=== PATIENT | male | born 1975 | race Caucasian/White ===

== ENCOUNTER 2017-11-12 07:55 | Emergency (ER) | payer BC ==
[2017-11-12] MEDS ORDERED: Loperamide 2 MG Cap PO STA (08:28)
--- NOTE | 2017-11-12 08:34 | EDM.PDOC ---
ED HPI GENERAL MEDICAL PROBLEM - General Chief Complaint: Gastrointestinal Problem Stated Complaint: DIARRHEA Time Seen by Provider: 11/12/17 08:13 Source of Information: Reports: Patient, RN Notes Reviewed History Limitations: Reports: No Limitations - History of Present Illness INITIAL COMMENTS - FREE TEXT/NARRATIVE: The patient states that he occasionally has some loose bowel movements ever since he underwent a cholecystectomy in 2004, but he does not have a history of recurrent diarrhea. He took one tablet of Imodium yesterday morning before he went hunting with his daughter, just to be safe. He states that he was then at the [employer] [place] festival yesterday, and 8 the same food as everyone else. He developed generalized abdominal cramps and loose bowel movements, although not watery diarrhea last night, then nausea with dry heaves this morning. No recent fever. None of his close contacts are similarly ill. No recent antibiotics. No recent travel. No spoiled or malodorous food over the past few days. No prior similar symptoms. The patient states that he took a second Imodium around 18:00 last night, then a third around 00:30 this morning. The patient does not have a PCP. - Related Data Allergies Allergy/AdvReac Type Severity Reaction Status Date / Time No Known Allergies Allergy Verified 11/12/17 08:11 Home Meds: Home Meds Ondansetron [Zofran ODT] 1 tab PO Q8H PRN #10 tab.dis 11/12/17 [Rx] Testosterone Cypionate [Depo-Testosterone] 0.75 ml IM ASDIRECTED 11/12/17 [ History] Past Medical History Endocrine/Metabolic History: Reports: Obesity/BMI 30+, Other (See Below) (Low testosterone) Other Endocrine/Metabolic History: low testosterone - Past Surgical History GI Surgical History: Reports: Cholecystectomy (2004) Musculoskeletal Surgical History: Reports: Arthroscopic Knee (right) Social & Family History - Tobacco Use Smoking Status *Q: Former Smoker Years of Tobacco use: 23 Packs/Tins Daily: 0.8 Month/Year Tobacco Last Used: Quit 2012 - Caffeine Use Caffeine Use: Reports: Coffee - Alcohol Use Alcohol Use History: Yes Date/Time of Last Drink Comment: Quit Mar 2017 b/c has a drinking problem - Recreational Drug Use Recreational Drug Use: No - Living Situation & Occupation Living situation: Reports: , with Spouse, with Family (2 kids) Occupation: Disabled (due to knee) ED ROS GENERAL - Review of Systems Review Of Systems: ROS reveals no pertinent complaints other than HPI. ED EXAM, GI/ABD - Physical Exam Exam: See Below Exam Limited By: No Limitations General Appearance: Alert, WD/WN, No Apparent Distress Eyes: Bilateral: Normal Appearance, EOMI Ears: Normal External Exam, Hearing Grossly Normal Nose: Normal Inspection, No Blood Throat/Mouth: Normal Inspection, Normal Lips, Normal Voice, No Airway Compromise Head: Atraumatic, Normocephalic Neck: Normal Inspection, Full Range of Motion Respiratory/Chest: No Respiratory Distress, Lungs Clear, Normal Breath Sounds, No Accessory Muscle Use Cardiovascular: Normal Peripheral Pulses, Regular Rate, Rhythm, No Edema, No Gallop, No JVD, No Murmur, No Rub GI/Abdominal Exam: Normal Bowel Sounds, Soft, Non-Tender, No Organomegaly, No Distention, No Abnormal Bruit, No Mass, Other (Obese) (Male) Exam: Deferred Rectal (Males) Exam: Deferred Back Exam: Normal Inspection, Full Range of Motion. No: CVA Tenderness (L), CVA Tenderness (R) Extremities: Normal Inspection, Normal Range of Motion, No Pedal Edema, Normal Capillary Refill Neurological: Alert, Oriented, Normal Cognition, No Motor/Sensory Deficits Psychiatric: Normal Affect Skin Exam: Warm, Dry, Intact, Normal Color, No Rash Course - Vital Signs Last Recorded V/S: Last Vital Signs Temp 36.6 C 11/12/17 08:05 Pulse 67 11/12/17 08:05 Resp 16 11/12/17 08:05 BP 153/93 H 11/12/17 08:05 Pulse Ox 99 11/12/17 08:05 Orthostatic Blood Pressure [ 145/95 Standing] Orthostatic Blood Pressure [ 141/83 Supine] - Orders/Labs/Meds Orders: Active Orders 24 hr Category Date Time Status Orthostatic Vital Signs [RC] STAT Care 11/12/17 08:26 Active CULTURE STOOL + SHIGATOX [RM] Stat Lab 11/12/17 08:38 Received NOROVIRUS, RT-PCR Stat Lab 11/12/17 08:38 Received Ondansetron [Zofran ODT] Med 11/12/17 09:37 Once 4 mg PO ONETIME ONE Medication Orders Ondansetron HCl (Zofran Odt) 4 mg PO ONETIME ONE Stop: 11/12/17 09:38 Labs: Laboratory Tests 11/12/17 11/12/17 Range/Units 08:40 08:40 WBC 10.53 H (4.23-9.07) K/mm3 RBC 6.21 H (4.63-6.08) M/mm3 Hgb 18.3 H (13.7-17.5) gm/L Hct 53.8 H (40.1-51.0) % MCV 86.6 (79.0-92.2) fl MCH 29.5 (25.7-32.2) pg MCHC 34.0 (32.2-35.5) g/dl RDW Std Deviation 44.0 H (35.1-43.9) fL Plt Count 262 (163-337) K/mm3 MPV 10.0 (9.4-12.3) fl Neutrophils % (Manual) 67 H (40-60) % Band Neutrophils % 0 (0-10) % Lymphocytes % (Manual) 26 (20-40) % Atypical Lymphs % 0 % Monocytes % (Manual) 7 (2-10) % Eosinophils % (Manual) 0 L (0.8-7.0) % Basophils % (Manual) 0 L (0.2-1.2) Differential Comment See note Platelet Estimate Adequate RBC Morph Comment Normal Sodium 138 (136-145) mEq/L Potassium 3.9 (3.5-5.1) mEq/L Chloride 102 (98-107) mEq/L Carbon Dioxide 26 (21-32) mEq/L Anion Gap 13.9 (5-15) BUN 15 (7-18) mg/dL Creatinine 1.3 (0.7-1.3) mg/dL Est Cr Clr Drug Dosing 70.15 mL/min Estimated GFR (MDRD) 60 (>60) mL/min BUN/Creatinine Ratio 11.5 L (14-18) Glucose 122 H (74-106) mg/dL Calcium 9.0 (8.5-10.1) mg/dL Magnesium 1.9 (1.8-2.4) mg/dl Total Bilirubin 1.0 (0.2-1.0) mg/dL AST 26 (15-37) U/L ALT 48 (16-63) U/L Alkaline Phosphatase 65 (46-116) U/L Total Protein 7.9 (6.4-8.2) g/dl Albumin 4.1 (3.4-5.0) g/dl Globulin 3.8 gm/dL Albumin/Globulin Ratio 1.1 (1-2) Meds: Medications Generic Name Dose Route Start Last Admin Trade Name Maria L PRN Reason Stop Dose Admin Ondansetron HCl 4 mg 11/12/17 09:37 Zofran Odt PO 11/12/17 09:38 ONETIME ONE Discontinued Medications Generic Name Dose Route Start Last Admin Trade Name Freq PRN Reason Stop Dose Admin Loperamide HCl 4 mg 11/12/17 08:28 11/12/17 08:36 Imodium PO 11/12/17 08:29 4 mg ONETIME STA Administration - Re-Assessments/Exams Free Text/Narrative Re-Assessment/Exam: 11/12/17 08:28 I have ordered orthostatics, and if positive, we will treat with IV fluid. In addition, I have ordered a CBC, CMP and magnesium level, to make sure that there have not been any significant electrolyte shifts. I have ordered stool studies, including stool WBC, stool rotavirus, stool culture, and stool norovirus. Because the patient has not been on any antibiotics recently and, also, because his stool is loose but not watery, testing for C. difficile is not indicated. The patient states that he had a loose bowel movement just a few minutes ago. While the patient has taken a total of 3 tablets of loperamide over the past 24 hours, he did not take enough, in accordance with package directions. I have therefore ordered 4 mg loperamide. 11/12/17 08:30 The patient is not orthostatic. 11/12/17 09:38 Test results discussed with the patient. The patient's stool WBCs are elevated, but his rotavirus is negative. Stool culture and stool norovirus are pending. The patient's WBC count is mildly elevated at 10.53, but with 0% bandemia. He is mildly polycythemic, likely due to some intravascular depletion, but not enough to cause any electrolyte abnormalities orthostasis. I don't believe the patient needs to be hospitalized. He will receive a single tablet of Zofran ODT here in the ED, and I will send a prescription for additional to the [facility] pharmacy. I'm recommending that the patient stay well hydrated with Gatorade or Powerade, and eat a bland diet as tolerated. I am recommending that he continue with [id number] Imodium, one tablet after each loose bowel movement. I will refer the patient to Dr. Wang, should his symptoms not improve. Departure - Departure Time of Disposition: 09:39 Disposition: Home, Self-Care 01 Condition: Good Clinical Impression: Diarrhea - Discharge Information *PRESCRIPTION DRUG MONITORING PROGRAM REVIEWED*: Not Applicable *COPY OF PRESCRIPTION DRUG MONITORING REPORT IN PATIENT JOSE C: Not Applicable Referrals: Mariella Wang MD [Physician] - Forms: ED Department Discharge Additional Instructions: You were seen in the emergency room for nausea, loose bowel movements, and abdominal cramps. Workup in the ER included blood work, stool studies, and positional blood pressure checks. Your workup was unremarkable. You have not suffered any significant fluid or electrolyte shifts as a result of your diarrhea. You have been started on the antidiarrheal medicine Imodium (loperamide). Take 1 tablet after each loose bowel movement, to a maximum of 8 tablets within 24 hours, as directed on the label. A prescription for the anti-nausea medicine Zofran has been sent to the [facility] pharmacy, [address] [place] [address], located just south and across the [address] from [facility]. They will be open between noon and 4:00 today. Dissolve one tablet of Zofran on your tongue up to every 8 hours, as needed for nausea/ vomiting. We recommend that you stay well hydrated with Gatorade or Powerade. You may eat a bland diet, as tolerated. If your symptoms persist, please follow-up with Dr. Mariella Wang in the clinic. If any other problems, please do not hesitate to return to the ER. - My Orders Last 24 Hours: My Active Orders 11/12/17 08:26 Orthostatic Vital Signs [RC] STAT 11/12/17 08:38 CULTURE STOOL + SHIGATOX [RM] Stat NOROVIRUS, RT-PCR Stat 11/12/17 09:37 Ondansetron [Zofran ODT] 4 mg PO ONETIME ONE - Assessment/Plan Last 24 Hours: My Active Orders 11/12/17 08:26 Orthostatic Vital Signs [RC] STAT 11/12/17 08:38 CULTURE STOOL + SHIGATOX [RM] Stat NOROVIRUS, RT-PCR Stat 11/12/17 09:37 Ondansetron [Zofran ODT] 4 mg PO ONETIME ONE
[2017-11-12] MEDS ORDERED: Ondansetron 4 MG Tab.DIS PO ONE (09:37)
== END 2017-11-12 09:53 | disposition home or self-care (01) ==
LOC: JD.ED 07:55
DX: R19.7 Diarrhea, unspecified (principal); Z87.891 Personal history of nicotine dependence
CPT/HCPCS: 36415; 80053; 83735; 85007; 85027; 87046; 87425; 87798; 89055; 99284; A9270; 87427; 99283